=== PATIENT | male | born 1985 | race Caucasian/White ===

== ENCOUNTER 2024-03-23 10:32 | Emergency (ER) | payer OTHER, SELFPAY ==
[2024-03-23 10:42] VITALS: BP 130/73; PULSE 81; RESP 17; TEMP 37.7; O2SAT 98
--- NOTE | 2024-03-23 11:29 | ED.EAR ---
HPI - Ear Problem General Chief complaint: Ear Stated complaint: ear Time Seen by Provider: 03/23/24 11:05 Source: patient, RN notes reviewed and old records reviewed Mode of arrival: ambulatory Limitations: no limitations History of Present Illness HPI Narrative: 38 year old [facility] with complaints of right ear feeling achy and clogged for the past few 3 days. Patient reports no drainage from his right ear, denies any sinus congestion or drainage, no sore throat or any cough. Patient reports no known fevers, reports no chills or sweats. Patient reports that he has not taken any OTC medications for his symptoms. MD Complaint: ear pain and other (ear muffled) Location: right ear Duration: constant Severity: mild Discharge from ear: Reports no Associated symptoms ear: decreased hearing and other (achy) Treatment prior to arrival: none Related Data Allergies Allergy/AdvReac Type Severity Reaction Status Date / Time No Known Allergies Allergy Verified 03/23/24 10:41 Review of Systems Review of Systems: CONSTITUTIONAL: Denies malaise, chills, sweats, no known fever. EYES: Denies visual changes, redness, or discharge. ENT: Reports no rhinorrhea, congestion, sinus pain,positive for right otalgia and no sore throat. CARDIOVASCULAR: Denies chest pain, palpitations, or edema. RESPIRATORY: Reports no cough.? Denies dyspnea. GASTROINTESTINAL: Denies abdominal pain, nausea, vomiting, diarrhea SKIN: Denies rash or itching. MUSCULOSKELETAL: Denies myalgia. NEUROLOGIC: Denies headache. All systems reviewed & are unremarkable except as noted in HPI and below PMFSH Surgical History Surgical History (Updated 03/23/24 @ 12:41 by Jalyn Davis NP) History of placement of ear tubes History of tonsillectomy and adenoidectomy Social History Social History (Updated 03/23/24 @ 11:44 by Jalyn Davis NP) Smoking packs per day: 1 Smoking cigarettes per day: 20.0 Years smoked: 15 Smoking pack-years: 15.00 Smoking status: Current every day smoker Tobacco type: cigarettes Alcohol intake: current Alcohol use details: social Substance use: current Substance use type: marijuana Living arrangements: with family Gender identity (if verbalized by the patient): Male Comments At time of signature, agree with nursing past medical, surgical, social and family history. There is no relevant family history pertinent to the presenting complaint Exam Narrative: GENERAL: Well-appearing, well-nourished, and in no acute distress. HEAD: Normocephalic EYES: PERRLA, conjunctivae clear ENT: Nares clear, turbinates edematous and erythematous, clear discharge. Mucous membranes moist.Right TM red, Left pearly harden with dull light reflex bilaterally; no tragal tenderness. Oropharynx erythematous without lesions. Tonsils not present and throat without exudate, no drooling, no hoarseness, no trismus, uvula midline. NECK: Supple. No lymphadenopathy CHEST: Clear to auscultation, breath sounds equal. No wheezing, rhonchi, rales, or stridor. No respiratory distress, speaks in full sentences.no cough noted SAO2 98% on room air HEART: Regular rate and rhythm. No murmur heard. SKIN: Warm, dry, no rash. NEURO: Alert and oriented x3. PSYCH: Normal mood and affect Course Course Emergency Course: Patient is aware of diagnosis, understands and agrees to treatment plan.? Anticipatory guidance given.? Patient agrees to follow-up as directed and is aware of reasons to seek care at the emergency department. Portions of this record may have been created with voice recognition software Level of Care: Express Care Visit Vital Signs Vital signs: Vital Signs Temperature 37.7 C H 03/23/24 10:42 Pulse Rate 81 03/23/24 10:42 Respiratory Rate 17 03/23/24 10:42 Blood Pressure 130/73 03/23/24 10:42 Pulse Oximetry 98 03/23/24 10:42 Oxygen Delivery Room Air 03/23/24 10:
== END 2024-03-23 11:41 | disposition home or self-care (01) ==
PROVIDERS: Emergency Provider Registered Nurse
DX: H66.91 Otitis media, unspecified, right ear (principal); F17.210 Nicotine dependence, cigarettes, uncomplicated; F12.90 Cannabis use, unspecified, uncomplicated
CPT/HCPCS: 99213; G0463

== ENCOUNTER 2025-02-11 18:11 | Emergency (ER) | payer OTHER, SELFPAY ==
[2025-02-11 18:16] VITALS: BP 128/81; PULSE 99; RESP 20; TEMP 36.9; O2SAT 96
--- NOTE | 2025-02-11 18:17 | ED_ITS ---
HPI - General Adult General Chief complaint: Neck Pain/Injury Stated complaint: swelling under neck Time Seen by Provider: 02/11/25 18:20 Source: patient, RN notes reviewed and old records reviewed Mode of arrival: ambulatory Limitations: no limitations History of Present Illness HPI narrative: 31-year-old male presents to the [facility] with swelling the right side below jaw. States that 2 weeks ago he had swelling to the outside and reports under his tongue as well. Took some ibuprofen went away by the next day. Patient denies any dental issues, denies sore throat, denies any ear pain. States today that it returned. No treatment prior to arrival today. No difficulty swallowing. Still no ear pain, sore throats, no sinus congestion Related Data Home Medications ?Medication ?Instructions ?Recorded ?Confirmed ?Last Taken ?Type No Home Medications 02/11/25 Unknown History Allergies Allergy/AdvReac Type Severity Reaction Status Date / Time No Known Allergies Allergy Verified 02/11/25 18:21 Review of Systems Review of Systems: All systems reviewed & are unremarkable except as noted in HPI and below Constitutional: Constitutional: Reports no additional constitutional complaints ENT: Reports as per HPI Cardiovascular: Cardiovascular: Reports no additional cardiovascular complaints, Denies chest pain and Denies dyspnea Respiratory: Respiratory: Reports no additional respiratory complaints, Denies chest congestion, Denies cough and Denies dyspnea Musculoskeletal: Musculoskeletal: Reports no additional musculoskeletal complaints Integumentary/Breasts: Skin/Breast: Reports system reviewed and no additional complaints, except as docu REPLACED BY [facility] Surgical History Surgical History (Updated 03/23/24 @ 12:41 by Jalyn Davis NP) History of placement of ear tubes History of tonsillectomy and adenoidectomy Social History Social History (Updated 03/23/24 @ 11:44 by Jalyn Davis NP) Smoking packs per day: 1 Smoking cigarettes per day: 20.0 Years smoked: 15 Smoking pack-years: 15.00 Smoking status: Current every day smoker Tobacco type: cigarettes Alcohol intake: current Alcohol use details: social Substance use: current Substance use type: marijuana Living arrangements: with family Gender identity (if verbalized by the patient): Male Comments At the time of my signature, I reviewed and agree with the nursing past medical, surgical, social, and family history. There is no relevant family history pertinent to the patient complaint. Exam Const: General: cooperative, healthy appearing, comfortable, no acute distress, well developed, alert and well nourished Nutritional Appearance: well nourished Orientation/consciousness: patient oriented x3 Limitations: no limitations HENMT: Head: normal to inspection Ears: hearing grossly normal bilaterally, external ears normal, TM's normal bilaterally, EAC's normal, mastoids normal and no periauricular adenopathy Face/Nose/Sinus: Normal external nose present, Normal nares present and No nasal discharge present Face and sinus: normal facial exam and face symmetric Mouth: Yes Normal oral and palatal mucosa present, Yes lip normal, Yes tongue normal, Yes Normal salivary glands and ducts present and Yes moist mucous membranes Throat: posterior oropharynx normal, uvula midline and no uvular edema Eyes: General: appearance normal, both eyes and all related structures Alignment and Position: alignment normal Neck: Neck: normal visual inspection, full ROM, no lymphadenopathy and no meningeal signs Lymphatic: lymphadenopathy (Right submandibular) Chest: Chest palpation & inspection: normal inspection of the chest Resp: Effort & Inspection: normal respiratory effort and able to speak in complete sentences Auscultation: clear to auscultation bilaterally, no crackles, no rales, no rhonchi and no wheezes Cardio: Rate: regular rate Skin: General skin exam: normal color and no rashes or lesions noted Neuro: General: patient oriented x3, gait normal, moves all extremities and no meningeal signs Cognition (Neuro): normal cognition Speech: normal speech Gait exam (Neuro): Normal gait present Extrem: General: normal to inspection, full ROM, capillary refill normal and normal gait Psych: Appearance: grossly normal and well kempt Mental Status: mental status grossly normal Speech and movement: Normal speech and movement present and Clear speech present Affect: normal affect Attitude: cooperative Course Course Level of Care: Express Care Visit Vital Signs Vital signs: Vital Signs Temperature 98.5 F 02/11/25 18:16 Pulse Rate 99 02/11/25 18:16 Respiratory Rate 20 02/11/25 18:16 Blood Pressure 128/81 02/11/25 18:16 Pulse Oximetry 96 02/11/25 18:16 Oxygen Delivery Room Air 02/11/25 18:16 Temperature 98.5 F 02/11/25 18:16 Pulse Rate 99 02/11/25 18:16 Respiratory Rate 20 02/11/25 18:16 Blood Pressure 128/81 02/11/25 18:16 Pulse Oximetry 96 02/11/25 18:16 Oxygen Delivery Room Air 02/11/25 18:16 Reviewed Medical Decision Making MDM Narrative Medical decision making narrative: Patient sitting comfortably in exam room. Patient is nontoxic, vitals stable. Patient presents with concerns of a swollen lymph node. No signs of a bacterial infection. No salivery stones which may have been the original issue 2 weeks ago. Discharge instructions reviewed with patient, as well as provided in writing per nursing staff. The instructions also include specific and strict return/GO TO THE ER as well as f/u information. All questions have been answered, and the patient deny any further questions with discharge and discharge plan. Some parts of this dictation were generated by voice recognition software and may contain typographical and/or grammatical inaccuracies. Differential Diagnosis Differential Diagnosis: Bile infection, bacterial infection, lymphadenopathy, salivary stones Medical Records Medical records reviewed: Yes I reviewed the external patient's medical records. Vital Signs Vital Signs: Vital Signs Temperature 98.5 F 02/11/25 18:16 Pulse Rate 99 02/11/25 18:16 Respiratory Rate 20 02/11/25 18:16 Blood Pressure 128/81 02/11/25 18:16 Pulse Oximetry 96 02/11/25 18:16 Oxygen Delivery Room Air 02/11/25 18:16 Temperature 98.5 F 02/11/25 18:16 Pulse Rate 99 02/11/25 18:16 Respiratory Rate 20 02/11/25 18:16 Blood Pressure 128/81 02/11/25 18:16 Pulse Oximetry 96 02/11/25 18:16 Oxygen Delivery Room Air 02/11/25 18:16 Reviewed Lab Data Lab results reviewed: Yes I reviewed the patient's lab results. Labs: Reviewed Critical Care Time Critical Care Time Critical Care Time: No Discharge Plan Discharge Clinical Impression: Submandibular lymphadenopathy Patient Disposition: Home Condition: Stable Instructions: Antibiotic Form, Lymphadenopathy (ED), Sialoadenitis (ED) Additional Instructions: Take Motrin as needed Follow-up with your primary care provider if symptoms continue Patient Language: Georgian Prescriptions: No Action No Home Medications Follow-up/Referrals: MARLY,CHUCKIE Gerber M.D. [Primary Care Provider] - 2 Weeks (express care follow up ) Time of Disposition: 18:38
--- OUTSIDE RECORDS SUMMARY | 2025-02-11 18:40 | XMS_ITS | Encounter Summary ---
Author Organization [facility] Address [address] [place] [address] Care Team Providers Care Ux Research Associate Name Role Phone Adelia Hawthorne MD, Azam Beauchamp Primary Care Provider Adelia Hawthorne MD, Azam Beauchamp Unavailable Reason for Visit * Reason Onset Date Comments MEDICATION REFILL 08/16/2024 Encounter Details Date Type Department Care Team (Late st Contact Info) Description 08/16/2024 Refill [facility] - Family Medicine [address] [place] [address] Azam Delvalle Jr., MD [address] [place] [id number] MEDICATION REFILL Social History Tobacco Use Types Packs/Day Years Used Date Smoking Tobacco: Every Day Cigarettes Smokeless Tobacco: Never Alcohol Use Standard Drinks/Week Comments Yes 0 (1 standard drink = 0.6 oz pur e alcohol) occ PHQ-2 Answer Date Recorded Patient Health Questionnaire-2 Score 0 08/18/2023 Sex and Gender Information Value Date Recorded Sex Assigned at Male 04/18/2021 11:56 AM CDT Legal Sex Male 10:14 AM CDT Gender Identity Male 04/18/2021 11:56 AM CDT Sexual Orientation Don't know 04/18/2021 11 :56 AM CDT Occupation Industry Job Start Date Job End Date Not on file Not on file Not on file Not on file documented as of this encounter Miscellaneous Notes * Telephone Encounter - Francoise Long APRN-CNP - 08/19/2024 8:22 PM SECURITY SOFTWARE ENGINEER Per chart in March - pt was seeking new PCP since he moved. If he wishes to continue with us, will need OV; its been over a year since last seen RITY SOFTWARE ENGINEER * Telephone Encounter - Libby Arriola RN - 08/17/2024 3:39 PM CDT Images from the original note were not included. DOES NOT MEET PROTOCOL - SENT TO PROVIDER FOR REVIEW ADULT MED REFILL PROTOCOL [id number]/16/2024 09:38 AM Protocol Details Has ED/Impotence on Problem List Medication: Requested Prescriptions Pending Prescriptions Disp Refills sildenafil (Viagra) 50 MG tablet 10 tablet 1 Sig: Take 1 (one) tablet by mouth once as needed (before sex for a better erection) Last Office Visit with PCP: 08/18/23 Last Video Visit with PCP: Visit date not found Next Appointment with PCP: Visit date not found RN sends [employer] message informing patient to schedule an appointment at PCP office. Date of last refill: 05/22/24 Follow-up: 12 months from 02/22/23 o/v documented in this encounter Plan of Treatment Not on file documented as of this encounter Visit Diagnoses Not on filedocumented in this encounter Care Teams Ux Research Associate Relationship Specialty Start Date End Date Azam Delvalle Jr., MD PCP - General Family Medicine 02/17/17 Azam Delvalle Jr., MD [address] [place] [address] PCP - Attributed-[employer] 06/17/20 documented as of this encounter
--- OUTSIDE RECORDS SUMMARY | 2025-02-11 18:40 | XMS_ITS | Clinical Summary ---
Author Organization [facility] Address [address] [place] [address] Care Team Providers Care Manager Credit Name Role Phone Adelia Hawthorne MD, [facility] Primary Care Provider Allergies No known active allergies Medications docusate sodium (Colace) 100 mg capsuleIndicati ons:constipatio n Take 1 capsule (100 mg total) by mouth 2 (two) times a day for 14 days 28 capsule 05/08/2024 Active sildenafiL (VIAGRA) 50 mg tablet Take 1 tablet (50 mg total) by mouth daily as needed 02/09/2024 Active valACYclovir (VALTREX) 1 gram tablet Take 2 tablets twice daily for 1 day with flair 02/09/2024 Active Active Problems Problem Noted Date Diagnosed Date S/P laparoscopic cholecystectomy 05/15/2024 Pilonidal cyst 05/15/2024 Resolved Problems Problem Noted Date Diagnosed Date Resolved Date Cholecystitis, acute 05/08/2024 024 Immunizations Immunization Administration Dates Next Due Influenza, Quadrivalent, Spl it, Preservative Free, Intramuscular 08/18/2023 Dragon Tail SARS-CoV-2 Monovalent Vaccination (12+ Yrs) PURPLE 05/20/2021,04/29/2021 Pneumococcal Polysaccharide PPV23 05/23/2020 Td, adsorbed 05/30/2002 Tdap 02/18/2017 Surgical History Surgery Date Site/Laterality Comments TESTICLE SURGERY LAPAROSCOPIC CHOLECYSTECTOMY 05/08/2024 Medical History Medical History Date Comments Cancer (HCC) testicular cance r Cholecystitis, acute 05/08/2024 Social History Tobacco Use Types Packs/Day Years Used Date Smoking Tobacco: Every Day Cigarettes Smokeless Tobacco: Never Tobacco Cessation:Ready to Q uit: Not Asked; Counseling Given: Not Answered AUDIT-C Answer Date Recorded Q1: How often do you have a drink containing alc ohol? 2-4 times a month 05/15/2024 Q2: How many drinks containi ng alcohol do you have on a typical day when you are drinking? 3 or 4 05/15/2024 Q3: How often do you have si x or more drinks on one occasion? Never 05/15/2024 Personal Safety Answer Date Recorded Have you ever been in or are you currently in a harmful physical or emotional relationship or is someone making you feel afraid or unsafe? Denies 05/08/2024 Sex and Gender Information Value Date Recorded Sex Assigned at Not on file Legal Sex Male 5:51 AM CDT Gender Identity Not on file Sexual Orientation Not on file Obstetrics History Last Filed Vital Signs Vital Sign Reading Time Taken Comments Blood Pressure 117/79 05/15/2024 9:53 AM CDT Pulse 85 05/15/2024 9:53 AM CDT Temperature 36.2 C (97.1 F) 05/15/2024 9:53 AM CDT Respiratory Rate 18 05/08/2024 4:20 PM CDT Oxygen Saturation 96% 05/15/2024 9:53 AM CDT Inhaled Oxygen Concentration - - Weight 94.4 kg (208 lb 1.6 oz) 05/15/2024 9:53 A M CDT Height 182.9 cm (6') 05/15/2024 9:53 AM CDT Body Mass Index 28.22 05/15/2024 9:53 AM CDT Plan of Treatment Health Maintenance Due Date Last Done Comments Depression Screening 1986 Hepatitis C Screening 1986 Varicella Vaccines (1 of 2 - 13+ 2-dose series) 12/25/1999 Hepatitis B Screening 2004 Regular Well Visit/Exam 18-64 2004 Pneumococcal vaccine <65 (2 of 2 - PCV) 05/23/2021 05/23/2020 Covid-19 Vaccine (3 - 2023-2 5 season) 2024 05/20/2021, 04/29/2021 Influenza Vaccine (Season Ended) 2025 08/18/2023 DTaP/Tdap/Td Vaccine (2 - Td or Tdap) 02/18/2027 02/18/2017, 05/30/2002 HPV Vaccines Aged Out No longer eligi ble based on patient's age to complete this topic Insurance [employer] OPEN ACCESS Advance Directives For more information, please contact: [phone] * Full Code (Latest Code Status on File) Date Activated Date Inactivated Comments 05/08/2024 9:45 AM 05/08/2024 8:34 PM Care Teams Manager Credit Relationship Specialty Start Date End Date Azam Delvalle Jr., MD [address] [place] [address] PCP - General Family Medicine 05/08/24
--- OUTSIDE RECORDS SUMMARY | 2025-02-11 18:40 | XMS_ITS | Referral Summary ---
Author Organization [facility] Address [address] [place] [address] Care Team Providers Care Composite Science Teacher Name Role Phone Adelia Hawthorne MD, [facility] Primary Care Provider Allergies No known [...] Quadrivalent, Spl it, Preservative Free, Intramuscular 08/18/2023 Pfizer SARS-CoV-2 Monovalent Vaccination (12+ Yrs) PURPLE 05/20/2021,04/29/2021 Pneumococcal Polysaccharide PPV23 05/23/2020 Td, adsorbed 05/30/2002 Tdap 02/18/2017 Social History Tobacco Use Types Packs/Day Years [...] on file Sexual Orientation Not on file Last Filed Vital Signs Vital Sign Reading [...] 05/15/2024 9:53 AM CDT Plan of Treatment Not on file Insurance [employer] OPEN ACCESS Advance Directives For more information, please contact: [phone] * Full Code (Latest Code Status on File) Date Activated Date Inactivated Comments 05/08/2024 9:45 AM 05/08/2024 8:34 PM Care Teams Composite Science Teacher Relationship Specialty Start Date End Date Azam Delvalle Jr., MD [address] [place] [address] PCP - General Family Medicine 05/08/24
--- OUTSIDE RECORDS SUMMARY | 2025-02-11 18:40 | XMS_ITS | Clinical Summary ---
Author Organization [facility] Address [address] [place] [address] Care Team Providers Care Leasing Professional Name Role Phone Adelia Hawthorne MD, Azam Beauchamp Primary Care Provider Adelia Hawthorne MD, Azam Beauchamp Unavailable Source Comments [facility],non-owned Affiliates and Associated Physician Practices is amultiple site organization consisting of ambulatory clinics and hospital sitesin [place], [place], [place] and [place]. This disclosure is being madepursuant to the Care Everywhere program and may not contain all information available regarding this patient. Last updated 18.[facility] Allergies No known active allergies Medications * Be aware that medications may not be up to date on this document. Alwaysverify current medications with the patient. ibuprofen (MOTRIN) 200 MG tablet Take 2 (two) tablets by mouth every 6 hours as needed Active valACYclovir (Valtrex) 1 GM tablet Take 2 tablets twice daily for 1 day with flair 28 tablet 05/22/2024 Active sildenafil (Viagra) 50 MG tablet Take 1 (one) tablet by mouth once as needed (before sex for a better erection) 10 tablet 1 11/29/2024 Active Active Problems Problem Noted Date Diagnosed Date Routine general medical exam ination at a health care facility 02/22/2023 Assessment & Plan (02/22/2023 3:36 PM CDT): - The patient is advised to begin progressive daily aerobic exercise program, follow a low fat, low cholesterol diet, continue current medications, continue current healthy lifestyle patterns and return for routine annual checkups. Hydradenitis 05/12/2022 Assessment & Plan (02/22/2023 3:36 PM CDT): Continue Duac Assessment & Plan (05/12/2022 10:08 AM CDT): Duac Moisture treatment (desitin/vaseline/powder) See loss prevention leader if not improving in next 3 months History of testicular cancer 05/12/2022 Low libido 05/12/2022 Assessment & Plan (02/22/2023 3:36 PM CDT): Continue viagra Assessment & Plan (05/12/2022 11:18 AM CDT): Likely standard libido with now discrepancy between his 's and his libido. Also with some psychological stress due to lost erections previously - Trial of Sildenafil 50mg QHS PRN HSV (herpes simplex virus) infection 05/24/2020 Assessment & Plan (02/22/2023 3:36 PM CDT): Continue Valtrex Assessment & Plan (05/24/2020 7:33 AM CDT): Valtrex 2g BID for 1 day Resolved Problems Problem Noted Date Diagnosed Date Resolved Date Malignant neoplasm of descended right testis 0 05/12/2022 Assessment & Plan (05/24/2020 7:32 AM CDT): Resected 02/2017, followed w/ Dr. Rueda Encounters Date Type Department Care Team Description 11/28/2024 Refill [facility] - Family Medicine [address] [place] [address] Azam Delvalle Jr., MD MEDICATION REFILL from Last 3 Months Immunizations Immunization Administration Dates Next Due INFLUENZA VACCINE, QUADR. (F LUZONE; FLULAVAL; FLUARIX; AFLURIA QUADRIVALENT; 6MO+), 0.5 ML (IIV4) 08/18/2023 PNEUMOCOCCAL PPSV23 05/23/2020 TD (AGE 8-ADULT) 05/30/2002 TDAP (7yrs+) 02/18/2017 Family History Medical History Relation Name Comments Bipolar Disorder Father Depression Mother Diabetes Mother Relation Name Status Comments Father Other Maternal Grandfather Other Maternal Grandmother Other Mother Alive Paternal Grandfather Other Paternal Grandmother Other Social History Tobacco Use Types Packs/Day Years Used Date Smoking Tobacco: Every Day Cigarettes Smokeless Tobacco: Never Tobacco Cessation:Ready to Q uit: Yes; Counseling Given: Yes Alcohol Use Standard Drinks/Week Comments Yes 0 (1 standard drink = 0.6 oz pur e alcohol) occ PHQ-2 Answer Date Recorded Patient Health Questionnaire-2 Score 0 08/28/2024 Sex and Gender Information Value Date Recorded Sex Assigned at Male 04/18/2021 11:56 AM CDT Legal Sex Male 10:14 AM CDT Gender Identity Male 04/18/2021 11:56 AM CDT Sexual Orientation Don't know 04/18/2021 11 :56 AM CDT Occupation Industry Job Start Date Job End Date Not on file Not on file Not on file Not on file Last Filed Vital Signs Vital Sign Reading Time Taken Comments Blood Pressure 124/72 08/18/2023 3:17 PM CDT Pulse 84 08/18/2023 3:17 PM CDT Temperature 36.7 C (98.1 F) 02/17/2021 11:48 AM CDT Respiratory Rate 16 03/02/2021 11:03 AM CDT Oxygen Saturation 97% 08/18/2023 3:17 PM CDT Inhaled Oxygen Concentration - - Weight 99.8 kg (220 lb) 08/28/2024 9:40 AM CUSTOMER ACCOUNT ADMINISTRATOR Height 182.9 cm (6') 08/28/2024 9:40 AM CUSTOMER ACCOUNT ADMINISTRATOR Body Mass Index 29.84 08/28/2024 9:40 AM CUSTOMER ACCOUNT ADMINISTRATOR Plan of Treatment Health Maintenance Due Date Last Done Comments HEPATITIS B VACCINE (1 of 3 - 19+ 3-dose series) 2005 PNEUMOCOCCAL VACCINE (2 of 2 - PCV) 05/23/2021 05/23/2020 COVID-19 VACCINE (2023-2 5 season) 2024 05/20/2021, 04/29/2021 DEPRESSION SCREENING 10/17/2024 08/28/2024, 02/22/2023, 05/12/2022 INFLUENZA VACCINE (Season Ended) 2025 08/18/2023 DTAP/TDAP/TD VACCINES (3 - T d or Tdap) 02/18/2027 02/18/2017, 05/30/2002 ZOSTER VACCINE (1 of 2) 2036 HEPATITIS C SCREENING Completed 02/22/2023 HIV SCREENING Completed 02/22/2023 HIB VACCINE Aged Out No longer eligi ble based on patient's age to complete this topic HPV VACCINE Aged Out No longer eligi ble based on patient's age to complete this topic MENINGOCOCCAL (Group B) VACCINE SHARED DECISION-MAKING Aged Out No longer eligible based on patient's age to complete this topic MENINGOCOCCAL GROUPS A/C/Y/W VACCINE Aged Out No longer eligible b ased on patient's age to complete this topic Procedures Procedure Name Priority Date/Time Associated Diagnosis Comments HEPATITIS C ANTIBODY Routine 02/22/2023 3:05 PM CDT Screening examination for infectious disease HIV-1 HIV-2 ANTIBODY + HIV P24 AG PANEL Routine 02/22/2023 3:05 PM CDT Screening examination for infectious disease from Last 3 Months or Most Recently Relevant to Health Maintenance Results * HIV-1 HIV-2 ANTIBODY + HIV P24 AG PANEL (02/22/2023 3:05 PM CDT) HIV Screen 4th Generation w Reflex Non Reactive Non Reactive [facility] Comment: HIV Negative HIV-1/HIV-2 antibodies and HIV-1 p24 antigen were NOT detected. There is no laboratory evidence of HIV infection. Blood BLOOD SPECIMEN / Unknown 02/22/2023 3:05 PM CDT 02/22/2023 Narrative Resulting Agency Comment Lab Testing performed at: [address] [id number] [place] Azam Delvalle Jr., MD LAB - CHEMISTR Y ORDERABLES Final Result [facility] INSURANCE BILL [address] [place] [address] * HEPATITIS C ANTIBODY (02/22/2023 3:05 PM CDT) Hepatitis C Antibody Non Reactive Non Reactive [facility] INSURANCE BILL Comment: Non Reactive - Antibodies to Hepatitis C virus (HCV) were no t detected, result does not exclude early acute HCV infection. Blood BLOOD SPECIMEN / Unknown 02/22/2023 3:05 PM CDT 02/22/2023 Narrative Resulting Agency Comment Lab Testing performed at: [facility] [address] [facility] [id number] Azam Delvalle Jr., MD LAB - CHEMISTR Y ORDERABLES Final Result [facility] INSURANCE BILL [address] [place] [address] from Last 3 Months or Most Recently Relevant to Health [place] [address] [employer] Care Teams Leasing Professional Relationship Specialty Start Date End Date Azam Delvalle Jr., MD PCP - General Family Medicine 02/17/17 Azam Delvalle Jr., MD [address] [place] [address] [facility]
== END 2025-02-11 18:41 | disposition home or self-care (01) ==
PROVIDERS: Emergency Provider Nurse Practitioner; PCP Internal Medicine Pulmonary Disease
DX: R59.1 Generalized enlarged lymph nodes (principal); F17.210 Nicotine dependence, cigarettes, uncomplicated
CPT/HCPCS: 99212; G0463